=== PATIENT | female | born 1980 | race African-American/Black ===

== ENCOUNTER 2020-10-14 09:13 | Observation (INO) | payer SELFPAY ==
[2020-10-14] MEDS ORDERED: Scopolamine 1.5 mg/72 hour Patch ONE (10:27)
[2020-10-14] MEDS ORDERED: Ketorolac Tromethamine 30 MG/ML VIAL ONE ×2 (10:27→12:21)
[2020-10-14] MEDS ORDERED: Levofloxacin 500 mg/D5W 100 ml Premix Bag ONE (10:27)
[2020-10-14] MEDS ORDERED: Acetaminophen 500 MG TAB ONE (10:27)
[2020-10-14] MEDS ORDERED: Lidocaine 1% w/Epinephrine 1:100K 20 ML VIAL ONE (12:09)
[2020-10-14] MEDS ORDERED: Bupivacaine PF 0.5% 30 ML VIAL ONE (12:09)
[2020-10-14] MEDS ORDERED: Fentanyl 100 MCG/2 ML VIAL ONE ×4 (12:10→15:02)
[2020-10-14] MEDS ORDERED: Midazolam HCl 2 mg/2 ml Vial ONE (12:10)
[2020-10-14] MEDS ORDERED: Glycopyrrolate 0.2 MG/ML 5 ML SYRINGE ONE (12:21)
[2020-10-14] MEDS ORDERED: Ondansetron PF 4 MG/2 ML Vial ONE (12:21)
[2020-10-14] MEDS ORDERED: PHENYLEPHRINE-NS 100 MCG/ML 10 ML SYRINGE ONE (12:21)
[2020-10-14] MEDS ORDERED: Dexamethasone 20 MG/5 ML VIAL ONE (12:21)
[2020-10-14] MEDS ORDERED: Succinylcholine 200 MG/10 ml SYRINGE FS ONE (12:21)
[2020-10-14] MEDS ORDERED: PROPOFOL 200 MG/20 ML VIAL ONE (12:21)
[2020-10-14] MEDS ORDERED: Rocuronium Bromide 10 MG/ML (10ML VIAL) ONE (12:21)
[2020-10-14] MEDS ORDERED: Lidocaine 1% PF 5 ML VIAL ONE (12:21)
[2020-10-14] MEDS ORDERED: SUGAMMADEX SODIUM 200 MG/2 ML VIAL ONE (13:14)
[2020-10-14] MEDS ORDERED: Ondansetron HCl/PF 4 MG/2 ML Vial IVP PRN (13:25)
[2020-10-14] MEDS ORDERED: HYDROmorphone 2 MG/ML VIAL SLOW IVP PRN (13:25)
[2020-10-14] MEDS ORDERED: Promethazine HCl 25 MG/ML VIAL IVPB PRN (13:25)
[2020-10-14] MEDS ORDERED: Promethazine HCl 25 MG/ML VIAL IM PRN (13:25)
[2020-10-14] MEDS ORDERED: Meperidine HCl/PF 25 MG/ML VIAL SLOW IVP PRN (13:25)
[2020-10-14] MEDS ORDERED: Meperidine HCl/PF 25 MG/ML VIAL ONE (13:33)
[2020-10-14] MEDS ORDERED: Morphine 4 MG/ML VIAL SLOW IVP PRN (14:53)
[2020-10-14] MEDS ORDERED: Ondansetron PF 4 MG/2 ML Vial IVP PRN (14:53)
[2020-10-14] MEDS ORDERED: Ondansetron ODT 4 MG TAB PO PRN (14:53)
[2020-10-14] MEDS ORDERED: hydrALAZINE 20 MG/ML VIAL SLOW IVP PRN (14:53)
[2020-10-14] MEDS ORDERED: D5 1/2 NS w/20 mEq KCL 1,000 ML ONE (15:02)
[2020-10-14 16:16] VITALS: BMI 34.8
[2020-10-14] MEDS: Acetaminophen 500 MG TAB PO SCH ×2 (16:35→20:29)
[2020-10-14] MEDS: D5 1/2 NS w/20 mEq KCL 1,000 ML IV SCH ×2 (16:36→23:38)
[2020-10-14] MEDS: traMADol HCl 50 MG TAB PO PRN ×2 (18:04→21:52)
[2020-10-14] MEDS: Ibuprofen 600 MG TAB PO PRN (18:06)
[2020-10-14] MEDS: Enoxaparin Sodium 40 MG/0.4 ML SYRINGE SC SCH (20:30)
[2020-10-14] MEDS: Famotidine 20 MG TAB PO SCH (20:30)
[2020-10-14] MEDS: Morphine 2 MG/ML VIAL SLOW IVP PRN (21:52)
[2020-10-15] MEDS: Acetaminophen 500 MG TAB PO SCH ×4 (03:50→21:22)
[2020-10-15] MEDS: D5 1/2 NS w/20 mEq KCL 1,000 ML IV SCH ×2 (06:31→19:30)
[2020-10-15 06:47] LABS: ALT (SGPT) 47 U/L (8-55); AST (SGOT) 37 U/L (5-34); Alkaline Phosphatase 61 U/L (40-110); Anion Gap 7 mmol/L (10-20); BUN (Urea Nitrogen) 5 mg/dL (7.0-18.7); Bilirubin, Total 0.3 mg/dL (0.2-1.2); Calc. Creatinine Clearance 184 mL/min (70-130); Calcium 8.6 mg/dL (7.8-10.44); Carbon Dioxide 28 mmol/L (22-29); Chloride 102 mmol/L (98-107); Globulin 3.4 g/dL (2.4-3.5); Glucose 125 mg/dL (70-105); Potassium 4.4 mmol/L (3.5-5.1); Protein, Total 6.4 g/dL (6.0-8.3); Sodium 133 mmol/L (136-145)
[2020-10-15 08:25] LABS: Band 3 % (5-11); Hemoglobin 9.3 g/dL (12.0-16.0); Lymphocytes 8 % (21-51); MDiff Complete? YES; Mean Corpuscular Hemoglobin 22.9 pg (27.0-31.0); Mean Corpuscular Volume 73.9 fL (78.0-98.0); Mean Platelet Volume 8.1 fL (7.4-10.4); Metamyelocyte 1 % (0-0); Microcytosis SLIGHT = 6-15 cells (100X) (0-5/hpf); Monocytes 2 % (0-10); Neutrophil 86 % (42-75); Platelet Count 281 thou/uL (130-400); Poikilocytosis SLIGHT = 6-15 cells (100X) (0-5/hpf); Red Blood Cell (RBC) Count 4.06 mill/uL (4.20-5.40)
[2020-10-15] MEDS: Famotidine 20 MG TAB PO SCH ×2 (09:22→21:21)
[2020-10-15] MEDS: traMADol HCl 50 MG TAB PO PRN ×2 (15:42→21:21)
[2020-10-15] MEDS ORDERED: Nabumetone 500 MG TAB PO PRN (18:03)
[2020-10-15] MEDS ORDERED: Baclofen 10 MG TAB PO PRN (18:03)
[2020-10-15] MEDS: Morphine 2 MG/ML VIAL SLOW IVP PRN (18:21)
[2020-10-15] MEDS: Ibuprofen 600 MG TAB PO PRN (18:24)
[2020-10-15] MEDS: Enoxaparin Sodium 40 MG/0.4 ML SYRINGE SC SCH (21:22)
[2020-10-16] MEDS: Acetaminophen 500 MG TAB PO SCH ×3 (03:24→19:21)
[2020-10-16 05:39] LABS: #Eosinphils 0.5 thou/uL (0.0-0.7); #Monocytes 1.2 thou/uL (0.11-0.59); #Neutrophils 15.7 thou/uL (1.40-6.50); %Basophils 0.1 % (0.0-1.0); %Eosinophils 2.7 % (0.0-10.0); %Lymphocytes 10.2 % (21.0-51.0); %Monocytes 6.2 % (0.0-10.0); %Neutrophils 80.9 % (42.0-75.0); Hemoglobin 8.2 g/dL (12.0-16.0); Mean Corpuscular HGB CONC 31.2 g/dL (32.0-36.0); Mean Corpuscular Hemoglobin 23.1 pg (27.0-31.0); Mean Platelet Volume 7.8 fL (7.4-10.4); Platelet Count 323 thou/uL (130-400); RBC Distribution Width 14.7 % (11.5-14.5); Red Blood Cell (RBC) Count 3.53 mill/uL (4.20-5.40); White Blood Cell (WBC) Count 19.4 thou/uL (4.8-10.8)
[2020-10-16 06:02] LABS: ALT (SGPT) 43 U/L (8-55); AST (SGOT) 29 U/L (5-34); Albumin 2.9 g/dL (3.5-5.0); Alkaline Phosphatase 61 U/L (40-110); Anion Gap 7 mmol/L (10-20); BUN (Urea Nitrogen) 8 mg/dL (7.0-18.7); Bilirubin, Total 0.2 mg/dL (0.2-1.2); Calc. Creatinine Clearance 189 mL/min (70-130); Calcium 8.6 mg/dL (7.8-10.44); Carbon Dioxide 29 mmol/L (22-29); Chloride 103 mmol/L (98-107); Globulin 3.2 g/dL (2.4-3.5); Glucose 88 mg/dL (70-105); Potassium 3.4 mmol/L (3.5-5.1); Protein, Total 6.1 g/dL (6.0-8.3); Sodium 136 mmol/L (136-145)
[2020-10-16] MEDS: Famotidine 20 MG TAB PO SCH (10:13)
[2020-10-16 12:00] VITALS: BP 98/67; TEMP 97.9
[2020-10-16] MEDS ORDERED: Amoxicillin/Potassium Clav 875 MG TAB PO SCH (21:00)
== END 2020-10-16 15:30 | disposition home or self-care (01) ==
LOC: SDC 09:13 → INTOOBSV 14:53 → SURG A 14:53
PROVIDERS: ADMIT Specialist; ATTEND Specialist
PROC: 0FT44ZZ Resection of Gallbladder, Percutaneous Endoscopic Approach (ICD-10-PCS; principal; 2020-10-14)
DX: K80.12 Calculus of gallbladder with acute and chronic cholecystitis without obstruction (principal); K65.9 Peritonitis, unspecified; K66.0 Peritoneal adhesions (postprocedural) (postinfection); Z98.890 Other specified postprocedural states; Z90.722 Acquired absence of ovaries, bilateral
CPT/HCPCS: 36415; 74022; 80053; 85025; 88304; J1100; J1650; J1885; J1956; J2175; J2250; J2270; J2405; J2704; J3010; J3480; S0020